=== PATIENT | male | born 1965 | race Caucasian/White ===

== ENCOUNTER 2023-06-22 18:23 | Emergency (ER) | payer OTHER, BC ==
[2023-06-22] MEDS ORDERED: Diphtheria,Pertussis(Acell),Tetanus Vaccine 0.5 ML Syringe IM ONE (18:31)
[2023-06-22] MEDS ORDERED: Acetaminophen/HYDROcodone 325-5 MG Tab PO ONE (18:44)
[2023-06-22] MEDS ORDERED: ceFAZolin 1 GM in Sodium Chloride 0.9% 50 ML IV ONE (18:44)
[2023-06-22] MEDS ORDERED: Bacitracin Oint 1 GM U/D Packet TOP ONE (19:32)
[2023-06-22] MEDS ORDERED: Bacitracin Oint 28.35 GM Tube TOP STA (19:40)
[2023-06-22] MEDS ORDERED: Bacitracin Oint 28.35 GM Tube ONE (19:43)
== END 2023-06-22 20:25 | disposition home or self-care (01) ==
LOC: MW.ED 18:23
DX: S82.54XA Nondisplaced fracture of medial malleolus of right tibia, initial encounter for closed fracture (principal); S50.312A Abrasion of left elbow, initial encounter; S80.212A Abrasion, left knee, initial encounter; V24.49XA Other motorcycle driver injured in collision with heavy transport vehicle or bus in traffic accident, initial encounter; Y92.410 Unspecified street and highway as the place of occurrence of the external cause
CPT/HCPCS: 29505; 73610; 73620; 90471; 90715; 96365; 99284; A9270; J0690; J3490; 99283